=== PATIENT | male | born 1945 | race Caucasian/White ===

== ENCOUNTER 2018-05-18 19:23 | Emergency (ER) | payer OTHER ==
[~2018-05-18] VITALS: Ht 154.9 cm; Wt 113.4 kg
[~2018-05-18 19:23] MED LIST: CYCLOBENZAPRINE5 M2 PO; LISINOPRIL20 M1 PO; METFORMIN HCL500 M3 PO; TERAZOSIN HCL10 M1 PO; ZYRTEC10 M3 PO
[2018-05-18 19:41] VITALS: BP 162/91
[2018-05-19] MEDS ORDERED: CILOXAN5 ML OPH (08:28)
== END 2018-05-18 20:43 | disposition admitted as inpatient to this hospital (09) ==
LOC: ERH 19:23
DX: T15.92XA Foreign body on external eye, part unspecified, left eye, initial encounter (principal)